=== PATIENT | male | born 1945 | race Caucasian/White ===

== ENCOUNTER 2017-03-25 15:37 | Emergency (ER) | payer BC ==
[2017-03-25 15:51] VITALS: BP 153/90
--- NOTE | 2017-03-25 16:07 | ED Physician Documentation ---
History of Present Illness - Stated complaint Stated Complaint: COUGH - Chief complaint Chief Complaint: Resp - History obtained from History obtained from: Patient - History of Present Illness Timing: Other Associated symptoms: Mildly productive cough x5 days without fever or dyspnea or chest pain, no URI sx. Review of Systems Constitutional: denies: Fever, Chills Nose: denies: Rhinorrhea / runny nose, Congestion Cardiac: denies: Chest pain / pressure, Palpitations, Pedal edema, Calf pain Respiratory: reports: Cough. denies: Dyspnea, Hemoptysis, Wheezing GI: denies: Abdominal Pain PD PAST MEDICAL HISTORY - Present Medications Home Medications: Ambulatory Orders Medication Instructions Recorded Confirmed guaiFENesin/CODEINE [Robitussin AC] 5 - 10 ml PO Q6H PRN #240 ml 03/25/17 - Allergies Allergies/Adverse Reactions: Allergies Allergy/AdvReac Type Severity Reaction Status Date / Time No Known Drug Allergies Allergy Verified 03/25/17 15:50 PD ED PE NORMAL - Vitals Vital signs reviewed: Yes - General General: Alert and oriented X 3, No acute distress - Cardiac Cardiac: RRR, No murmur - Respiratory Respiratory: No respiratory distress, Clear bilaterally - Abdomen Abdomen: Non tender - Extremities Extremities: No edema, No calf tenderness / cord - Neuro Neuro: Alert and oriented X 3, Normal speech - Psych Psych: Normal mood, Normal affect Results - Vitals Vitals: Vital Signs - 24 hr 03/25/17 15:48 Temperature 36.6 C Heart Rate 71 Respiratory 17 Rate Blood Pressure 153/90 H O2 Saturation 99 Oxygen O2 Source Room air - Rads (name of study) 2v chest Radiology: EMP read contemporaneously (Chronic lung dz, NAD) Departure - Departure Disposition: 01 Home, Self Care Clinical Impression: Cough Condition: Good Record reviewed to determine appropriate education?: Yes Instructions: ED Cough Chronic Cause Unkn Prescriptions: guaiFENesin/CODEINE [Robitussin AC] 5 - 10 ml PO Q6H PRN #240 ml PRN Reason: Cough Comments: Call your doctor to arrange a follow-up appointment, make the next available appointment. In the interim, return anytime if worse or if new symptoms develop. Your blood pressure was elevated today on check into the emergency department. This does not mean that you have hypertension, it is a common phenomenon to come to the emergency department and have elevated blood pressure. I recommend that she see her primary care physician within the week to have it rechecked when you are feeling better.
--- NOTE | 2017-03-25 16:36 | XRAY Preliminary Report ---
Exam: XR Chest 2 View PA/LAT IMPRESSION: Chronic lung disease. [facility] SITE ID: [id number]
--- NOTE | 2017-03-25 16:42 | XRAY Report ---
EXAM: CHEST RADIOGRAPHY EXAM DATE: 03/25/2017 04:28 PM. CLINICAL HISTORY: Productive cough for 5 days. COMPARISON: None. TECHNIQUE: 2 views. FINDINGS: Lungs/Pleura: Overexpanded. Small amount of scarring left anterior lung base. No pneumothorax, effusi on, vascular congestion, nor pneumothorax. Mediastinum: Heart and mediastinal contours are unremarkable. Other: None. IMPRESSION: Chronic lung disease. [facility] Referring Provider Line: [phone] SITE ID: [id number]
== END 2017-03-25 16:48 | disposition home or self-care (01) ==
LOC: ED 15:37
DX: R05 Cough (principal); R03.0 Elevated blood-pressure reading, without diagnosis of hypertension
CPT/HCPCS: 71020; 99283